=== PATIENT | male | born 1970 | race Caucasian/White ===

== ENCOUNTER 2020-08-26 11:53 | Emergency (ER) | payer BC ==
[~2020-08-26] VITALS: Ht 190.5 cm; Wt 148.5 kg
--- NOTE | 2020-08-26 12:56 | EKG ---
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
--- NOTE | 2020-08-26 13:14 | RAD ---
Examination: CT HEAD WO CONTRAST History: Reason: headache / Spl. Instructions: / History: Comparison/Correlation: None Findings: Axial images of the head were obtained without contrast. Small bifrontal subdural hygromas are present. Atrophy is present. No intracranial hemorrhage, midline shift or mass effect. Bony structures are grossly unremarkable. Impression: No suspicious process. Electronically signed by: Gabriel Sena MD (08/26/2020 1:11 PM) [id number]
--- NOTE | 2020-08-26 13:15 | RAD ---
Examination: PORTABLE CHEST 1V History: heartburn, pain/ Comparison/Correlation: None Findings: Portable frontal view chest was obtained. Heart size and pulmonary vessels are normal. No infiltrate or pleural effusion. No pneumothorax. Bony structures are unremarkable. Impression: No active disease. Electronically signed by: Gabriel Sena MD (08/26/2020 1:12 PM) [id number]
[2020-08-26 13:20] LABS: BASO # 0.1 x10^3/uL (0.0-0.2); BASO % 1 % (0-3); EOS # 0.1 x10^3/uL (0.0-0.7); EOS % 1 % (0-3); HEMATOCRIT 46.9 % (39.0-53.0); HEMOGLOBIN 15.9 g/dL (13.0-17.5); LYMPH # 2.8 x10^3/uL (1.0-4.8); LYMPH % 33 % (24-48); MEAN CORPUSCULAR HEMOGLOBIN 31 pg (25-35); MEAN CORPUSCULAR HGB CONC 34 g/dL (31-37); MEAN CORPUSCULAR VOLUME 90 fL (79-100); MONO # 0.6 x10^3/uL (0.0-1.1); MONO % 7 % (0-9); NEUT % 58 % (31-73); PLATELET COUNT 205 x10^3/uL (140-400); RED BLOOD COUNT 5.19 x10^6/uL (4.30-5.70); RED CELL DISTRIBUTION WIDTH 13.9 % (11.5-14.5); WHITE BLOOD COUNT 8.6 x10^3/uL (4.0-11.0)
[2020-08-26 13:30] LABS: CALCIUM 9.3 mg/dL (8.5-10.1); CREATININE 0.9 mg/dL (0.7-1.3); GFR 90.4; POTASSIUM 3.6 mmol/L (3.5-5.1)
[2020-08-26] MEDS ORDERED: hydrALAZINE 20 MG/ML VIAL. IV ONE (13:30)
[2020-08-26] MEDS ORDERED: LIDO:MAALOX 1:1 20 ML SINGLE DOSE. PO ONE (13:30)
--- NOTE | 2020-08-26 13:30 | PHYS DOC ---
Past History Past Medical History: GERD, Other Additional Past Medical Histor: SLEEP APNEA Past Surgical History: No Surgical History Alcohol Use: None General Adult EDM: Chief Complaint: HYPERTENSION HPI: HPI: 49-year-old male past medical history significant for hypertension, former tobacco dependence (x5yrs), GERD, obesity with sleep apnea on CPAP and history of hypertension not on any medications, presents to the ED with complaints of " burning/warm/unpleasant epigastric abdominal pain that started around 530 this morning while waking up. Pt went to [facility] and BP was 180/110. Patient reports history of gastritis (clinical diagnosis) and states his current symptoms are similar but they are lower and more diffuse. Patient reports discontinuing spicy foods and alcohol significantly decreased this pain. No h/o GI evaluation or EGD. FH -grandfather with ACS. No FH sudden under the age of 50, aortic disease or connective tissue disorder. Pt denies any cocaine abuse or h/o syncope, dvt/pe. Sxs worsened after egg/cheese/ham casserole this am. Reports some shortness of breath and nausea started when patient woke up this morning- states "I just didn't feel good." Review of Systems: Review of Systems: Constitutional: Denies fever or chills Eyes: Denies change in visual acuity HENT: Denies nasal congestion or sore throat Respiratory: Denies cough or shortness of breath or hemoptysis Cardiovascular: Denies edema or syncope GI: Denies abdominal pain, nausea, vomiting, bloody stools or diarrhea : Denies dysuria Musculoskeletal: Denies back pain or joint pain Integument: Denies rash Neurologic: Denies headache, focal weakness or sensory changes or nuchal rigidity Endocrine: Denies polyuria or polydipsia Lymphatic: Denies swollen glands Psychiatric: Denies depression or anxiety Heart Score: HEART Score for Chest Pain: HEART Score for Chest Pain Response (Comments) Value History Slighlty/Non-Suspicious 0 ECG Normal 0 Age >45 - < 65 1 Risk Factors >3 Risk Factors or Hx CAD 2 Troponin < Normal Limit 0 Total 3 Risk Factors: Risk Factors: DM, Current or recent (<one month) smoker, HTN, HLP, family history of CAD, obesity. Risk Scores: Score 0 - 3: 2.5% MACE over next 6 weeks - Discharge Home Score 4 - 6: 20.3% MACE over next 6 weeks - Admit for Clinical Observation Score 7 - 10: 72.7% MACE over next 6 weeks - Early Invasive Strategies Allergies: Allergies: Allergies Coded Allergies Type Severity Reaction Last Updated Verified No Known Drug Allergies 08/26/20 No Physical Exam: PE: Constitutional: Well developed, well nourished, no acute distress, non-toxic appearance. [] HENT: Normocephalic, atraumatic, bilateral external ears normal, oropharynx moist, no oral exudates, nose normal. [] Eyes: EOMI, conjunctiva normal, no discharge. [] Neck: Normal range of motion, supple, no stridor. [] Cardiovascular:Heart rate regular rhythm, no murmur [] Lungs & Thorax: Bilateral breath sounds clear to auscultation [] Abdomen: Bowel sounds normal, soft, no tenderness, no masses, no pulsatile masses. [] Skin: Warm, dry, no erythema, no rash. [] Back: No tenderness, Extremities: No tenderness, no cyanosis, no clubbing, ROM intact, no edema. [] Neurologic: Alert and oriented X 3, normal motor function, normal sensory function, no focal deficits noted. [] Psychologic: Affect normal, judgement normal, mood normal. [] Current Patient Data: Labs: Laboratory Tests Test 08/26/20 13:00 White Blood Count 8.6 x10^3/uL (4.0-11.0) Red Blood Count 5.19 x10^6/uL (4.30-5.70) Hemoglobin 15.9 g/dL (13.0-17.5) Hematocrit 46.9 % (39.0-53.0) Mean Corpuscular Volume 90 fL (79-100) Mean Corpuscular Hemoglobin 31 pg (25-35) Mean Corpuscular Hemoglobin Concent 34 g/dL (31-37) Red Cell Distribution Width 13.9 % (11.5-14.5) Platelet Count 205 x10^3/uL (140-400) Neutrophils (%) (Auto) 58 % (31-73) Lymphocytes (%) (Auto) 33 % (24-48) Monocytes (%) (Auto) 7 % (0-9) Eosinophils (%) (Auto) 1 % (0-3) Basophils (%) (Auto) 1 % (0-3) Neutrophils # (Auto) 5.0 x10^3uL (1.8-7.7) Lymphocytes # (Auto) 2.8 x10^3/uL (1.0-4.8) Monocytes # (Auto) 0.6 x10^3/uL (0.0-1.1) Eosinophils # (Auto) 0.1 x10^3/uL (0.0-0.7) Basophils # (Auto) 0.1 x10^3/uL (0.0-0.2) Vital Signs: Vital Signs Date Time Temp Pulse Resp B/P (MAP) Pulse Ox O2 Delivery O2 Flow Rate FiO2 08/26/20 13:00 76 12 170/114 (132) 95 Room Air 08/26/20 12:06 98.8 EKG: EKG: Sinus rhythm at 76 bpm, no axis deviation, T wave inversion lead III, Q wave in lead III no ST elevations or ST depressions, normal intervals Radiology/Procedures: Radiology/Procedures: IMAGING REPORT Signed PATIENT: AIDEE BARON ACCOUNT: [id number] : 1970 LOCATION: ER AGE: 49 SEX: M EXAM STATUS: REG ER ORD. PHYSICIAN: KELECHI KANG DO REASON: headache PROCEDURE: CT HEAD WO CONTRAST Examination: CT HEAD WO CONTRAST History: Reason: headache / Spl. Instructions: / History: Comparison/Correlation: None Findings: Axial images of the head were obtained without contrast. Small bifrontal subdural hygromas are present. Atrophy is present. No intracranial hemorrhage, midline shift or mass effect. Bony structures are grossly unremarkable. Impression: No suspicious process. Electronically signed by: Gabriel Hogan MD (08/26/2020 1:11 PM) [id number] DICTATED AND SIGNED BY: GABRIEL HOGAN MD DATE: 08/26/20 1311 CC: PCP,MARQUES; KELECHI KANG DO ~ IMAGING REPORT Signed PATIENT: AIDEE BARON ACCOUNT: [id number] : 1970 LOCATION: ER AGE: 49 SEX: M EXAM STATUS: REG ER ORD. PHYSICIAN: KELECHI KANG DO REASON: heartburn PROCEDURE: PORTABLE CHEST 1V Examination: PORTABLE CHEST 1V History: heartburn, pain/ Comparison/Correlation: None Findings: Portable frontal view chest was obtained. Heart size and pulmonary vessels are normal. No infiltrate or pleural effusion. No pneumothorax. Bony structures are unremarkable. Impression: No active disease. Electronically signed by: Gabriel Hogan MD (08/26/2020 1:12 PM) [id number] DICTATED AND SIGNED BY: GABRIEL HOGAN MD DATE: 08/26/20 131 CC: PCP,NO; KELECHI KANG DO ~ Impressions: 0 criteria No need for further workup, as <2% chance of PE. If no criteria are positive and clinicians pre-test probability is <15%, PERC Rule criteria are satisfied. Course & Med Decision Making: Course & Med Decision Making Pertinent Labs and Imaging studies reviewed. (See chart for details) Concern for atypical chest pain with 2 troponins negative in a low risk heart score for mace. Pain completely resolved with GI cocktail. Blood pressure imp roved in the ED with no evidence of end organ damage, normal renal function, no pulmonary edema, no elevated troponin. Will DC home with PMD, GI and cardiology follow-up. Will prescribe Pepcid and start patient on hydrochlorothiazide with urgent PMD follow-up for blood pressure recheck in the next week. Strict ED return precautions were given for symptomatic hypertension, chest pain or shortness of breath. Patient asymptomatic at time of discharge. Encouraged urgent outpatient follow-up with PMD and GI and cardiology. Life-threatening processes were considered but are low suspicion at this time, given history and physical exam. Pt was educated on all prescription medications and adverse effects. All patient's questions were answered and pt was stable at time of discharge. Life-threatening differential includes acute myocardial infarction, aortic dissection, congestive heart failure, esophageal injury including rupture, surgical abdomen, arrhythmia, cardiomyopathy, myocarditis, pericarditis, peptic ulcer disease, pneumomediastinum, pneumonia, pneumothorax, pulmonary embolus, unstable angina, rib fracture, contusion, pericardial tamponade or effusion, pulmonary contusion I spoken with the patient and her caregivers. I explained the patient's condition, diagnoses and treatment plan based on the information available to me at this time. I have answered the patient and her caregiver's questions and addressed any concerns. The patient and her caregivers have a good understanding of patient's diagnosis, condition and treatment plan as can be expected at this point. Vital signs have been stable. Patient's condition is stable and appropriate for discharge from the emergency department. Patient will pursue further outpatient evaluation with primary care physician or other designated or consulting physician as outlined in the discharge instructions. The patient and/or caregivers are agreeable to this plan of care and follow-up instructions have been explained in detail. The patient and/or caregivers have received these instructions in written form and have expressed an understanding of the discharge instructions. The patient and/or caregivers are aware that any significant change of condition or worsening of symptoms should prompt immediate return to this or the closest emergency department or call to 911. besomebody. Disclaimer: besomebody. Disclaimer: This electronic medical record was generated, in whole or in part, using a voice recognition dictation system. Departure Departure: Impression: Primary Impression: Chest pain at rest Additional Impression: Hypertension Disposition: 01 HOME/RESIDENCE PRIOR TO ADM Condition: STABLE Referrals: PCP,NO (PCP) Patient Instructions: Alcoholic Gastritis-Brief, Chest Pain (Nonspecific), Hypertension Additional Instructions: [facility] [employer] [employer]for pcp care [address] [address] [facility] [address], [address], Gastro[facility]ology [facility]-for gastritis/[place] [address] [facility] Cardiology [address] [address] EMERGENCY DEPARTMENT GENERAL DISCHARGE INSTRUCTIONS Thank you for coming to [facility] (ED) today and trusting us with you care. We trust that you had a positivie experience in our Emergency Department. If you wish to speak to the department management, you may call the director at [phone]. YOUR FOLLOW UP INSTRUCTIONS ARE FOLLOWS: 1. Do you have a private Doctor? If you do not have a private doctor, please ask for a resource list of physicians or clinics that may be able to assist you with follow up care. 2. The Emergency Physician has interpreted your x-rays. The X-Ray specialist will also review them. If there is a change in the findings, you will be notified in 48 hours when at all possible. 3. A lab test or culture has been done, your results will be reviewed and you will be notified if you need a change in treatment. ADDITIONAL INSTRUCTIONS AND INFORMATION: 1. Your care today has been supervised by a physician who is specially trained in emergency care. Many problems require more than one evaluation for a complete diagnosis and treatment. We recommend that you schedule your follow up appointment as recommended to ensure complete treatment of you illness or injury. If you are unable to obtain follow up care and continue to have a problem, or if your condition worsens, we recommend that you return to the ED. 2. We are not able to safely determine your condition over the phone nor are we able to give sound medical advice over the phone. For these safety reasons, if you call for medical advice we will ask you to come to the ED for further evaluation. 3. If you have any questions regarding these discharge instructions please call the ED at [phone]. SAFETY INFORMATION: In the interest of safety, wellness, and injury prevention; we encourage you to wear your sealbelt, if you smoke; quite smoking, and we encourage family to use a protective helmet for bicycling and other sporting events that present an increased risk for head injury. IF YOUR SYMPTOMS WORSEN OR NEW SYMPTOMS DEVELOP, OR YOU HAVE CONCERNS ABOUT YOUR CONDITION; OR IF YOUR CONDITION WORSENS WHILE YOU ARE WAITING FOR YOUR FOLLOW UP APPOINTMENT; EITHER CONTACT YOUR PRIMARY CARE DOCTOR, THE PHYSICIAN WHOSE NAME AND NUMBER YOU WERE GIVEN, OR RETURN TO THE ED IMMEDIATELY. Scripts Hydrochlorothiazide (HYDROCHLOROTHIAZIDE TABLET) 12.5 Mg Tablet 12.5 MG PO DAILY for DIURETIC for 30 Days, #30 TAB 0 Refills Prov: KELECHI KANG DO 08/26/20 Famotidine (PEPCID) 20 Mg Tablet 1 TAB PO BID for gastritis for 30 Days, #60 TAB 0 Refills Prov: KELECHI KANG DO 08/26/20 Justification of Admission: Justification of Admission: Justification of Admission Dx: N/A KELECHI KANG DO Aug 26, 2020 13:30
[2020-08-26 13:37] LABS: ALBUMIN 3.9 g/dL (3.4-5.0); DIRECT BILIRUBIN 0.2 mg/dL (0.0-0.2); MAGNESIUM 1.8 mg/dL (1.8-2.4); TOTAL BILIRUBIN 0.6 mg/dL (0.2-1.0); TOTAL PROTEIN 7.8 g/dL (6.4-8.2)
[2020-08-26 14:56] LABS: BARBITURATES NEG (NEG); BENZODIAZEPINES NEG (NEG); CANNABINOIDS NEG (NEG); COCAINE NEG (NEG); METHADONE NEG (NEG); OPIATES NEG (NEG); PHENCYCLIDINE NEG (NEG)
[2020-08-26 15:00] LABS: AMPHETAMINE/METHAMPHETAMINE NEG (NEG)
[2020-08-26] MEDS ORDERED: FAMO-63 PO (17:01)
[2020-08-26] MEDS ORDERED: HYDR12.58 PO (17:01)
[2020-08-26 17:45] VITALS: BP 138/90
== END 2020-08-26 17:45 | disposition home or self-care (01) ==
LOC: ER 11:53
DX: I10 Essential (primary) hypertension (principal); R07.89 Other chest pain; R10.13 Epigastric pain; K21.9 Gastro-esophageal reflux disease without esophagitis; G47.30 Sleep apnea, unspecified; E66.9 Obesity, unspecified; Z68.41 Body mass index [BMI] 40.0-44.9, adult
CPT/HCPCS: 36415; 70450; 71045; 80048; 80076; 80307; 82550; 83690; 83735; 84484; 85025; 93005; 96374; 99285; J0360